=== PATIENT | female | born 1950 | race Caucasian/White ===

== ENCOUNTER 2024-02-15 08:19 | Day surgery (SDC) | payer MEDICARE, SELFPAY ==
[2023-09-03 13:59] VITALS: BMI 33.7
--- NOTE | 2024-02-12 09:20 | P.CONAN_ITS ---
Documented by User: Lauren Handy NP 02/12/24 09:22 HPI - Anesthesia Eval Consult details Narrative: 73yo F for Upper Endoscopy and Colonoscopy FOR[facility] Past Medical History Medical History Elevated cholesterol GERD (gastroesophageal reflux disease) HTN (hypertension) Surgical History Surgical History History of total right knee replacement Hx of tonsillectomy History of repair of rectocele H/O colonoscopy Social History Social History Patient Tobacco Use Status: Never used Tobacco Use of substances other than those prescribed or required for medical reasons: No Are you DNR?: No Advance Directives: No Advance Directives Information Provided: Yes Meds Allergies Allergy/AdvReac Type Severity Reaction Status Date / Time Iodinated Contrast Media Allergy Unknown Verified 02/15/24 09:07 [IV Contrast Dye] Home Medications ?Medication ?Instructions ?Recorded ?Confirmed ?Last Taken ?Type aspirin 81 mg tablet,delayed 81 mg PO DAILY 09/03/23 09/03/23 02/07/24 History release atenolol 50 mg-chlorthalidone 25 1 tab PO DAILY 09/03/23 02/15/24 02/15/24 History mg tablet atorvastatin 20 mg tablet 20 mg PO BEDTIME 09/03/23 02/15/24 02/14/24 History docusate sodium 100 mg capsule 100 mg PO DAILY 09/03/23 09/03/23 Unknown History (Colace) mirabegron 50 mg tablet,extended 50 mg PO DAILY 09/03/23 02/15/24 02/14/24 History release 24 hr potassium chloride 20 mEq oral 20 meq PO DAILY 09/03/23 02/15/24 02/14/24 History packet trazodone 50 mg tablet 50 mg PO BEDTIME 09/03/23 02/15/24 02/14/24 History Exam Height,Weight and Vital Signs: Height 5 ft 3 in Weight 86.183 kg Assessment and Plan Assessment Anesthesia Assessment: Chart Reviewed Documented by User: Breanna Zavala MD 02/15/24 11:29 PMFSH Active Problems Active Problems: Cbd gummies. Last 2 days ago HTN GERD Hypercholesterolaemia ? Hypokalemia. On oral K+ supplements. Will check K+ levels Past Medical History Medical History Elevated cholesterol GERD (gastroesophageal reflux disease) HTN (hypertension) Family History Family history of problems with anesthesia: No Surgical History Surgical History History of total right knee replacement Hx of tonsillectomy History of repair of rectocele H/O colonoscopy History of Problems with Anesthesia: No Social History Social History Patient Tobacco Use Status: Never used Tobacco Use of substances other than those prescribed or required for medical reasons: No Are you DNR?: No Advance Directives: No Advance Directives Information Provided: Yes Meds Allergies Allergy/AdvReac Type Severity Reaction Status Date / Time Iodinated Contrast Media Allergy Unknown Verified 02/15/24 09:07 [IV Contrast Dye] Home Medications ?Medication ?Instructions ?Recorded ?Confirmed ?Last Taken ?Type aspirin 81 mg tablet,delayed 81 mg PO DAILY 09/03/23 09/03/23 02/07/24 History release atenolol 50 mg-chlorthalidone 25 1 tab PO DAILY 09/03/23 02/15/24 02/15/24 History mg tablet atorvastatin 20 mg tablet 20 mg PO BEDTIME 09/03/23 02/15/24 02/14/24 History docusate sodium 100 mg capsule 100 mg PO DAILY 09/03/23 09/03/23 Unknown History (Colace) mirabegron 50 mg tablet,extended 50 mg PO DAILY 09/03/23 02/15/24 02/14/24 History release 24 hr potassium chloride 20 mEq oral 20 meq PO DAILY 09/03/23 02/15/24 02/14/24 History packet trazodone 50 mg tablet 50 mg PO BEDTIME 09/03/23 02/15/24 02/14/24 History Exam Height,Weight and Vital Signs: Height 5 ft 3 in Weight 86.183 kg Vital Signs Temp Pulse Resp BP Pulse Ox O2 Del Method 02/15/24 09:06 97.0 F 54 16 170/68 H 94 Room Air Pertinent Lab Results Pertinent Lab Results: Lab Results 02/15/24 Range/Units 09:38 PT 12.3 (11.1-13.3) SEC INR 1.0 (0.9-1.1) Sodium 140 (135-145) mmol/L Potassium 3.3 (3.3-5.1) mmol/L Chloride 101 (96-108) mmol/L Carbon Dioxide 29 (22-29) mmol/L Anion Gap 13 (12-20) Airway Mallampati Class: III (Small mouth. Receding chin) TM Dist: <=3cm Neck ROM: Full Loose/Missing/Broken Teeth: Yes (Extractions. Crowns. Temporary crown top left) Heart: RRR Lungs: CTAB Assessment and Plan Assessment Anesthesia Assessment: Anesthesia Plan Discussed and Chart Reviewed Final Anesthetic Review Family History of Problems with Anesthesia: No History of Problems with Anesthesia: No NPO: Yes ASA Class: II Final Preanesthetic Review: No Changes in Pt Med Stat, Meds/Allgs Chart Reviewed, Consent Obtained/Reviewed and Anes Risks/Benef Reviewed Patient Risk: Low Procedure Risk: Low Assessment/Block/Sedation in SS: Assess/Block/Sedation-SS Anesthetic Plan Anesthetic Plan: GA and TIVA Disposition: Standard PACU
[2024-02-15 08:55] VITALS: BMI 34.0
[2024-02-15 09:06] VITALS: BP 170/68; PULSE 54; RESP 16; TEMP 36.1; O2SAT 94
[2024-02-15] MEDS: Lactated Ringers 1,000 ML 100 ML IVCONT (09:06)
[2024-02-15 09:57] LABS: Anion Gap 13 (12-20); Carbon Dioxide 29 mmol/L (22-29); Chloride 101 mmol/L (96-108); Potassium 3.3 mmol/L (3.3-5.1); Sodium 140 mmol/L (135-145)
[2024-02-15 10:12] LABS: Prothrombin Time 12.3 SEC (11.1-13.3)
[2024-02-15 11:43] VITALS: BP 122/65; PULSE 50; RESP 17; TEMP 36.2; O2SAT 96
--- NOTE | 2024-02-15 11:45 | PM.OP ---
Brief Operative Note Date of Service: 02/15/24 Pre-op diagnosis: GERD, Screening Post-op diagnosis: other (Hiatal hernia, Gastritis, Diverticulosis) Procedure: EGD with biopsies, Colonoscopy to the cecum Surgeon: Charli Will MD Anesthesia: MAC Was an Printed [employer] Boards Router used for this Procedure?: No Estimated blood loss (mL): 2.0 Pathology: other (A. EG Junction at 35cm B. Gastric antrum) Condition: stable Disposition: PACU
[2024-02-15 11:58] VITALS: BP 130/67; PULSE 53; RESP 18; TEMP 36.4; O2SAT 95
--- NOTE | 2024-02-15 22:59 | OP_ITS ---
DATE OF SERVICE: 02/15/2024 SURGEON: Charli Will MD INDICATIONS: The patient presents for evaluation of gastroesophageal reflux, personal history of tubular adenoma of the colon, and colorectal cancer screening. Full consent was obtained from her for this, including risks of bleeding and perforation. PREOPERATIVE DIAGNOSIS: POSTOPERATIVE DIAGNOSIS: PROCEDURE PERFORMED: Esophagogastroduodenoscopy with biopsies and colonoscopy to the cecum. ESTIMATED BLOOD LOSS: COMPLICATIONS: ANESTHESIA: Medication used; monitored anesthesia care. ASSISTANTS: SPECIMENS: PREOPERATIVE DIAGNOSES: Gastroesophageal reflux, personal history of tubular adenoma of the colon, and need for colorectal cancer screening. POSTOPERATIVE DIAGNOSES: Gastroesophageal reflux, personal history of tubular adenoma of the colon, and need for colorectal cancer screening, hiatal hernia, mild gastritis, diverticulosis and internal hemorrhoids. DESCRIPTION OF PROCEDURE: The patient was placed in left lateral decubitus position. The Olympus video gastroscope was passed in the posterior oropharynx and upper esophagus under direct vision. The scope was passed slowly into the distal esophagus. The gastroesophageal junction appeared at 35 cm. There was some slight irregularity with some erythema and edema consistent with some reflux, but no evidence of any esophagitis nor any definitive Weaver esophagus. The scope entered the stomach. There was a small hiatal hernia. The scope was advanced to the pylorus and the duodenum was cannulated to the descending portion. The duodenum including the bulb appeared normal without mass or ulceration. The scope was withdrawn back from the stomach. The gastric antrum had some areas of erythema and edema consistent with some mild gastritis, but no erosions nor ulceration. There was good peristalsis. Biopsies were obtained from the antrum. The scope was retroflexed, visualizing the proximal stomach carefully, which appeared normal, without any sign of mass or ulceration. The scope was straightened and withdrawn back from the esophagus. Biopsies were obtained at the EG junction at 35 cm. Proximal to that, the esophageal mucosa appeared normal. The scope was withdrawn from the patient. She was turned around for the colonoscopy. The digital rectal exam revealed no abnormalities. The Olympus video pediatric colonoscope was entered into the rectum and advanced to the cecum with the assistance of abdominal wall pressure. Once in the cecum, I did identify normal-appearing cecal pouch with appendiceal orifice and a normal-appearing ileocecal valve. The entire cecum and ileocecal valve appeared normal. There was transillumination of light deep in the right lower quadrant. The scope was then slowly withdrawn assessing all mucosal surfaces carefully. Preparation was excellent. I did not visualize any sign of polyps, colitis, or angiodysplasia. There was a mild amount of sigmoid diverticulosis. In the rectum, scope was retroflexed visualizing internal hemorrhoids, but no other pathology. The rectal mucosa appeared normal. Scope was straightened and withdrawn from the patient. She tolerated the procedure well and returned to recovery area in stable condition. IMPRESSION: 1. Mild gastritis. 2. Hiatal hernia. 3. Gastroesophageal reflux. 4. Diverticulosis. 5. Internal hemorrhoids. PLAN: The results of biopsy will be checked. Given her age and today's negative exam, as well as a negative colonoscopy in 2018, I do not think she will need any further screening colonoscopies. 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 I did advise that she could continue that but certainly use it daily or let me know if she needs something stronger and we could put her on a prescription instead. If she is otherwise doing well, she can see me on a p.r.n. basis. MD JET Becker/MARK / [id number]
== END 2024-02-15 12:50 | disposition home or self-care (01) ==
PROVIDERS: Anesthesiology; PCP Internal Medicine; Visit Provider Internal Medicine
PROC: (CPT 43239; principal; 2024-02-15 09:40)
DX: K29.60 Other gastritis without bleeding (principal); K44.9 Diaphragmatic hernia without obstruction or gangrene; K21.9 Gastro-esophageal reflux disease without esophagitis; Z12.11 Encounter for screening for malignant neoplasm of colon; K57.30 Diverticulosis of large intestine without perforation or abscess without bleeding; K64.8 Other hemorrhoids; Z86.010 Personal history of colon polyps; I10 Essential (primary) hypertension; E78.00 Pure hypercholesterolemia, unspecified; E78.5 Hyperlipidemia, unspecified
CPT/HCPCS: 43239; G0105; 36415; 80051; 85610; 88305; 88313; 88342; J1596; J2704